=== PATIENT | female | born 1960 | race Two or more races ===

== ENCOUNTER 2024-03-08 23:39 | Emergency (ER) | payer MEDICAID, SELFPAY ==
[2024-03-08 23:41] VITALS: BMI 30.7
[2024-03-09 00:30] VITALS: BP 130/85; PULSE 80; RESP 16; TEMP 36.7; O2SAT 100
--- NOTE | 2024-03-09 00:39 | PD.EDRME ---
Rapid Medical Screening Exam RME Arrival date/time: 03/08/24 23:39 63 yo f present to ED for c/o of RLQ for 1 week I have greeted and performed a focused initial assessment of this patient. A comprehensive ED assessment and evaluation of the patient, analysis of all test results, and completion of the medical decision making process will be conducted by additional ED providers. Chief Complaint: Abdominal Pain Time Seen by Provider: 03/08/24 23:45 Vital signs: Vital Signs Temperature 98.0 F 03/09/24 00:30 Pulse Rate 80 03/09/24 00:30 Respiratory Rate 16 03/09/24 00:30 Blood Pressure 130/85 H 03/09/24 00:30 Pulse Oximetry (%) 100 03/09/24 00:30 Oxygen Delivery Method Room Air 03/09/24 00:30
--- NOTE | 2024-03-09 00:40 | XR_ITS ---
Examination: Transvaginal ultrasound of the pelvis, complete Technique: Transvaginal sonographic images pelvis performed using pringle scale imaging Exam date and time: March 09, 2024 1401 hours INDICATIONS: Right pelvic pain beginning one week ago FINDINGS: Absent uterus Ovaries obscured by bowel gas IMPRESSION: Limited study No free fluid in the pelvis No pelvic mass.
[2024-03-09 01:12] LABS: Collection Type, Urine Voided
[2024-03-09 01:20] LABS: Basophils % (Auto) 1 % (0-2.5); Eosinophils # (Auto) 0.2 Thou/mm3 (0.0-0.5); Eosinophils % (Auto) 3 % (0-10); Hematocrit 40.4 % (36.0-46.0); Hemoglobin 13.7 g/dL (12.0-16.0); Immature Granulocytes % (Auto) 0 % (0-0); Immature Granulocytes Auto 0.01 Thou/mm3 (0.00-0.00); Lymphocytes # (Auto) 2.1 Thou/mm3 (1.0-4.8); Lymphocytes % (Auto) 33 % (10-50); Mean Corpuscular HGB Conc 33.9 g/dl (31.0-37.0); Mean Corpuscular Hemoglobin 29.3 pg (25.0-35.0); Mean Corpuscular Volume 87 fL (80-100); Monocytes # (Auto) 0.5 Thou/mm3 (0.0-0.8); Monocytes % (Auto) 8 % (0-12); Neutrophils # (Auto) 3.4 Thou/mm3 (1.8-7.7); Neutrophils % (Auto) 55 % (37-80); Nucleated Red Blood Cell % 0 /100 WBC (0); Platelet Count 283 Thou/mm3 (140-440); RDW Standard Deviation 38.4 fL (36.4-46.3); Red Blood Count 4.67 Miln/mm3 (4.00-5.20); White Blood Count 6.2 Thou/mm3 (3.6-11.0)
[2024-03-09 01:23] LABS: Bilirubin,Urine Negative (Negative); Blood,Urine Negative (Negative); Clarity,Urine Clear (Clear/Hazy); Color,Urine Yellow (Lt Yel-Yel); Glucose, Urine Negative (Negative); Hyaline Casts,Urine < 1 /hpf (0-1); Ketones,Urine Negative (Negative); Leukocyte Esterase,Urine Negative (Negative); Nitrite,Urine Negative (Negative); Protein,Urine 1+ (Neg - Trace); RBC,Urine 2 /hpf (0-3); Specific Gravity,Urine 1.038 (1.001-1.035); Squamous Epithelial Cell,Urine 2 /hpf (0-5); WBC,Urine 4 /hpf (0-5)
[2024-03-09 01:38] LABS: Alanine Aminotransferase 24 U/L (10-49); Albumin, Serum 4.3 gm/dL (3.4-4.8); Albumin/Globulin Ratio 1.1 (1.2-2.2); Alkaline Phosphatase 191 U/L (46-116); Anion Gap 8 (7-16); Aspartate Amino Transferase 25 U/L (0-34); BUN/Creatinine Ratio 31 Ratio (12-20); Bilirubin,Total 0.2 mg/dL (0.3-1.2); Blood Urea Nitrogen 25 mg/dL (9-23); Calcium 9.6 mg/dL (8.3-10.6); Calcium (Corrected) 9.6 mg/dL (8.5-10.1); Chloride 104 mMol/L (98-107); Creatinine (Component) 0.8 mg/dL (0.6-1.3); Estimated Creatinine Clearance 56.3 mL/min (>60); Globulin 3.8 gm/dL (2.3-3.5); Glucose 96 mg/dL (74-106); Lipase 42 U/L (12-53); Osmolality,Calculated 285 (275-295); Potassium 3.9 mMol/L (3.4-5.1); Sodium 141 mMol/L (136-145); Total Protein 8.1 gm/dL (5.7-8.2); eGFR > 60 See Note
--- NOTE | 2024-03-09 03:39 | PRELIM_ITS ---
Pelvic ultrasound (transvaginal). March 09, 2024 0201 hours Clinical history: Right pelvic pain for 1 week No prior study is available for comparison. Findings and Impression:The uterus is surgically absent. Both ovaries are not visualized due to bowel gas.There is no adnexal mass. There is no free f luid on the submitted images. Report Electronically Signed By: Marcos Hay 03/09/2024 3:39:19 AM [ES T]
--- NOTE | 2024-03-09 03:50 | XR_ITS ---
Examination: CT abdomen with intravenous contrast CT pelvis with intravenous contrast 2-D coronal reconstructions 2-D sagittal reconstructions Date and time of exam:March 09, 2024 0430 hours Comparison April 18, 2023 INDICATIONS: Onset pelvic pain beginning one week ago. CTDI: vol (mGy) 7.85 DLP: (mGycm) 414 Technique: Multiple axial sections of the abdomen and pelvis have been obtained. 64 slice high-resolution scanner used. 3 mm axial sections have been obtained, post intravenous injection 60 cc [id number] 2-D sagittal, coronal reconstructions obtained. Low dose protocols were performed. One or more of the following dose reduction techniques were used; automated exposure control, adjustment of the mA and/or KV according to patient size, use of iterative reconstruction technique. Findings: No focal liver or splenic lesion Gastric sutures No gallstones No pancreatic or adrenal mass No renal or ureteral calculi No hydronephrosis Aorta normal size No pericecal inflammatory change Fluid distended small bowel loops No diverticulitis Urinary bladder intact Small sclerotic lesion L4 vertebral body, recommend plain film metastatic bone survey follow-up IMPRESSION: Small bowel ileus versus enteritis pattern, consider 3 way abdominal series follow-up Sclerotic lesion L4 vertebral body, recommend plain film metastatic bone survey follow-up
--- NOTE | 2024-03-09 05:26 | PRELIM_ITS ---
CT scan of the abdomen and pelvis with intravenous contrast (axial sections with sagittal and coronal reformats) March 09, 2024 at 0415 hoursClinical History: Right lower quadrant for 1 week.Correlat ed with prior Ultrasound of March 09, 2024.Findings:The lung bases are clear.The liver, gallbladder , pancreas, spleen, kidneys and adrenals are unremarkable.No evidence of bowel obstruction. No eviden ce of appendicitis.Fecal loading.A few scattered air-fluid levels in the small bowel without evidence of wall thickening.There is no mesenteric or retroperitoneal adenopathy.The urinary bladder is unrem arkable. There is no free fluid or free air.Sclerotic lesion in the vertebral body of L4. No acute f ractures.Status post gastric bypass surgery.Impression:Possible mild enteritis.Fecal loading.Sclerot ic lesion in the vertebral body of L4, bone island versus metastasis, consider further evaluation. Re port Electronically Signed By: Yunior Kendall 03/09/2024 5:25:35 AM [EST]
--- NOTE | 2024-03-09 07:40 | EDNOTE_ITS ---
<Statement entered by Cheryle Crowe MD - 03/10/24 09:17> As co-signing physician, I was present and available for consult prn. I concur with the plan and care as documented by the midlevel provider. ED Abdominal Pain RME/HPI General Chief Complaint: Abdominal Pain Stated complaint: PELVIC PAIN X 1 WEEK Time seen by provider: 03/08/24 23:45 Arrival date/time: 03/08/24 23:39 63-year-old female with medical history significant for gastric bypass presents emerged department complains of pelvic pain ongoing x 1 week patient reports no fever or vomiting patient does report nausea there are no other associated symptoms or aggravating factors no other modifying factors, patient denies taking medication before coming to ER today Limitations: no limitations RME / HPI RME / HPI narrative: 03/08/24 23:39 63 yo f present to ED for c/o of RLQ for 1 week I have greeted and performed a focused initial assessment of this patient. A comprehensive ED assessment and evaluation of the patient, analysis of all test results, and completion of the medical decision making process will be conducted by additional ED providers. Related Data Previous Rx's ?Medication ?Instructions ?Recorded cyclobenzaprine 5 mg tablet 5 mg PO TID PRN muscle spasm #30 01/03/23 tabs hydrocodone 5 mg-acetaminophen 325 1 tab PO BID PRN pain #10 tabs 01/03/23 mg tablet hydrocodone 5 mg-acetaminophen 325 1 tab PO BID PRN pain #10 tabs 03/09/24 mg tablet metoclopramide HCl 10 mg tablet 10 mg PO Q6H PRN nausea and 03/09/24 (Reglan) vomiting #30 tabs Allergies Allergy/AdvReac Type Severity Reaction Status Date / Time ketorolac [From Toradol] Allergy Anxiety Verified 04/18/23 02:25 Review of Systems Review of Systems Systems Reviewed: All systems reviewed, normal except as documented Constitutional Constitutional: Reports system reviewed and no additional complaints, except as documented, Denies fever(s) and Denies headache(s) Eyes Eyes: Reports system reviewed and no additional complaints, except as documented and Denies blurry vision ENT Ears, Nose, Mouth, and Throat: Reports system reviewed and no additional complaints, except as documented, Denies headache(s), Denies nasal congestion, Denies nasal discharge and Denies neck pain Cardiovascular Cardiovascular: Reports system reviewed and no additional complaints, except as documented, Denies chest pain and Denies dyspnea Respiratory Respiratory: Reports system reviewed and no additional complaints, except as documented, Denies chest congestion, Denies cough and Denies dyspnea Gastrointestinal Gastrointestinal: Reports system reviewed and no additional complaints, except as documented, Reports abdominal pain, Denies melena, Reports nausea and Denies vomiting Musculoskeletal Musculoskeletal: Reports system reviewed and no additional complaints, except as documented, Denies neck pain and Denies numbness Integumentary/Breasts Skin/Breast: Reports system reviewed and no additional complaints, except as documented and Denies rash Neurologic Neurologic: Reports system reviewed and no additional complaints, except as documented, Reports as per HPI, Denies headache(s) and Denies numbness Past Medical History Past Medical History NEUROLOGIC: Negative Neurological Disorders or Seizures CARDIAC: Positive Hypertension; Negative Cardiac Disorders or Congestive Heart Failure RESPIRATORY: Negative Chronic Obstructive Pulmonary Disease (COPD) or Asthma GASTROINTESTINAL: Positive Gastrointestinal Disorders GENITOURINARY: Positive Genitourinary Disorders and Inguinal Hernia; Negative Renal Disease REPRODUCTIVE: Positive Previous Pregnancies MUSCULOSKELETAL: Positive Musculoskeletal Disorders ENDOCRINE: Positive Endocrine Disorders and Diabetes Mellitus Type 2; Negative Diabetes Mellitus Type 1 HEMATOLOGIC: Positive Blood Disorders and Anemia; Negative Sickle Cell Disease PSYCHO/SOCIAL: Positive Anxiety OTHER HISTORY: Positive Blood Transfusions and Chicken Pox; Negative Autoimmune Disease, Blood Transfusion Reaction, Anesthesia Reactions or Cancer Family History FAMILY HISTORY: Positive Family Cardiac Disorders, Family Gastrointestinal Problems and Family Surgery; Negative Family Psychiatric Problems, Family Respiratory Disorders, Family Cancer or Family Anesthesia Reaction Surgical History SURGICAL: Positive Abdominal Surgery, Gastric Bypass Surgery, Lumpectomy, Hysterectomy and Tubal Ligation Social History SMOKING STATUS: Never smoker SECOND HAND EXPOSURE: No SUBSTANCE USE: does not use ED Exam General Limitations: Present no limitations General appearance: Present alert and in no apparent distress Head Head exam: Present atraumatic and normocephalic Eye Eye exam: Present normal appearance, PERRL and EOMI; Absent conjunctival injection ENT ENT exam: Present normal exam, normal oropharynx and mucous membranes moist Neck Neck exam: Present normal inspection, full ROM and trachea midline Chest Chest inspection: Present normal inspection and symmetric chest wall rise Respiratory Respiratory exam: Present normal lung sounds bilaterally; Absent respiratory distress Cardiovascular Cardiovascular exam: Present regular rate, normal rhythm and normal heart sounds Abdominal Exam Abdominal exam: Present soft and normal bowel sounds; Absent distention, tenderness, guarding, rebound, rigidity, Manuel's sign or tenderness at McBurney's Point Abdominal tenderness: Present RLQ and mild Extremities Exam Extremities exam: Present normal inspection and full ROM Back Exam Back exam: Present normal inspection and full ROM Neurological Exam Neurological exam: Present alert, oriented X3 and CN II-XII intact Psychiatric Psychiatric exam: Present normal affect and normal mood Skin Skin exam: Present warm, dry, intact and normal color Course Quality Measures none Orders Category Date Time Status CT Screening NOW Care 03/09/24 03:50 Completed IV [Insert IV] STAT Care 03/09/24 03:[address] abdomen pelvis w con Stat Exams 03/09/24 03:50 Completed US transvaginal Stat Exams 03/09/24 00:40 Completed CBC Stat Lab 03/09/24 01:00 Completed CMP [Comprehensive Metabolic Panel] Stat Lab 03/09/24 01:00 Completed Lipase Stat Lab 03/09/24 01:00 Completed UA [Urinalysis] Stat Lab 03/09/24 01:05 Completed Urine Culture Stat Lab 03/09/24 01:05 Received HYDROcodone*/APAP 5/325 [[place] 5/325] Med 03/09/24 07:40 Discontinued 1 tab PO X1 ONE Metoclopramide [Reglan] Med 03/09/24 07:40 Discontinued 10 mg PO X1 ONE Vital Signs Vital signs: Vital Signs Temperature 98.0 F 03/09/24 00:30 Pulse Rate 80 03/09/24 00:30 Respiratory Rate 16 03/09/24 00:30 Blood Pressure 130/85 H 03/09/24 00:30 Pulse Oximetry (%) 100 03/09/24 00:30 Oxygen Delivery Method Room Air 03/09/24 00:30 O2 saturation 100% room air within normal limits Abdominal Pain MDM MDM Narrative MDM Narrative:: 63-year-old female with medical history significant for gastric bypass presents emerged department complains of pelvic pain ongoing x 1 week patient reports no fever or vomiting patient does report nausea there are no other associated symptoms or aggravating factors no other modifying factors, patient denies taking medication before coming to ER today On exam patient well-appearing patient does not appear ill or toxic in no acute distress Imaging as well as lab work obtained by my colleague he ordered an ultrasound p atient has no uterus both ovaries were not visualized secondary to bowel gas CT scan is read by teleradiology as possible mild enteritis, fecal loading sclerotic lesion of vertebral body of L4 bone island versus metastasis consider further evaluation I spoke with the patient instructed her to have outpatient MRI of her spine for further evaluation As patient hemodynamically stable symptoms are mild patient be discharged home at this time Patient given Reglan and [place] Patient discharged home in no distress to follow-up with primary care doctor in the next 24 to 48 hours and for any worsening symptoms to return to the ER immediately Patient instructed to have outpatient MRI for further evaluation for sclerotic lesion L4 vertebral body Patient data External records reviewed:: [facility] previous records Clinical information provided by:: patient Social determinants that could affect healthcare access:: none Patient has the following chronic illnesses:: See history How is presenting disease/condition affected by chronic disease/condition?: uneffected by Evaluation data The following diagnostics were reviewed and interpreted by me:: lab results and radiology exam(s) Lab and/or radiology exams considered but not ordered:: Labs and radiology obtained Interpretation Summary: Reviewed by me Medications / Prescriptions Medications or Prescriptions considered but not ordered:: Given Medication administrations:: Medication Administration History Discontinued Medications Hydrocodone Bitart/Acetaminophen (Hydrocodone/Apap 5/325 Tablet) 1 tab PO X1 ONE Stop: 03/09/24 07:41 Last Admin: 03/09/24 07:49 Dose: 1 tab Documented By: ZAIRA Metoclopramide HCl (Metoclopramide 5 Mg Tablet) 10 mg PO X1 ONE Stop: 03/09/24 07:41 Last Admin: 03/09/24 07:50 Dose: 10 mg Documented By: ZAIRA Given Consultations Consultation(s) initiated? (list below): No Diagnosis Differential diagnosis abdominal pain: abdominal pain, acute appendicitis, gastroenteritis and pancreatitis Most likely diagnosis given after review of the tests above:: Abdominal pain Admission Indicated Admission indicated?: not indicated Admission Request Was there a request for admission?: No Disposition Plan Disposition Plan: Discharge Discharge Attestation Discharge Attestation: The patient and all family members were given an opportunity to ask questions and understood the discharge instructions. Discharge instructions specifically effects, indications for sooner follow up or return to the emergency department, and the expected course of current diagnosis. Patient condition: Stable Discharge Plan Plan Patient Disposition: HOME (Self Care) Disposition Comment: Stable Prescriptions/Referrals Prescriptions/Med Rec: New hydrocodone-acetaminophen 5-325 mg tablet 1 tab PO BID MDD 10 PRN (Reason: pain) Qty: 10 0RF metoclopramide HCl [Reglan] 10 mg tablet 10 mg PO Q6H PRN (Reason: nausea and vomiting) Qty: 30 0RF No Action hydrocodone-acetaminophen 5-325 mg tablet 1 tab PO BID MDD 10 PRN (Reason: pain) Qty: 10 0RF cyclobenzaprine 5 mg tablet 5 mg PO TID PRN (Reason: muscle spasm) Qty: 30 0RF Referrals: Robert Pierson MD [Primary Care Provider] - 03/12/24 Problem List Clinical Impression: Abdominal pain Patient/Caregiver Discharge Instructions Education Materials: Abdominal Pain Additional Instructions: Please follow up with your primary care doctor in the next 24-48hrs for any worsening symptoms return here immediately Print Language: Kenyan Stand Alone Forms: Mary Award Info., Patient Portal Info Letter PA/WELD ENGINEER Supervising Physician PA/WELD ENGINEER Supervising Physician: Dr. CROWE
[2024-03-09] MEDS: HYDROcodone/APAP 5/325 TABLET 1 TAB PO (07:49)
[2024-03-09] MEDS: METOCLOPRAMIDE 5 MG TABLET 10 MG PO (07:50)
== END 2024-03-09 07:54 | disposition home or self-care (01) ==
PROVIDERS: Physician Assistant; Emergency Provider Emergency Medicine; PCP Family Medicine
DX: R10.2 Pelvic and perineal pain (principal)
CPT/HCPCS: 36415; 74177; 76830; 80053; 81001; 83690; 85025; 87077; 87086; 87186; 99285; A4649; Q9967; A9270

== ENCOUNTER 2024-06-08 02:41 | Emergency (ER) | payer MEDICAID, SELFPAY ==
--- NOTE | 2024-06-08 02:50 | EKG_ITS ---
[facility] Test Date: 2024-06-08 Pat Name: RAYMON BUSCH Department: Room: - Gender: Female Research And Development Researcher: : 1960 Requested By: Jose Chapin Order Number: [id number] Reading MD: Jose Chapin Measurements Intervals [place] Rate: 76 P: 20 MA: 212 QRS: -15 QRSD: 100 T: -12 QT: 380 QTc: 428 Interpretive Statements SINUS RHYTHM WITH FIRST DEGREE AV BLOCK Compared to ECG 09/29/2022 13:18:22 First degree AV block now present /[email or web address]/[id number]
--- NOTE | 2024-06-08 02:50 | PD.EDAMS ---
Altered Mental Status RME/HPI General Stated Complaint: LOW BLOOD SUGAR Time Seen by Provider: 06/08/24 02:49 Arrival date/time: 06/08/24 02:41 RME / HPI RME / HPI narrative: This section includes all my notes and documentations, including HPI, PE, and ED course. Jose Whitfield MD HPI: 63yo female with a history of DM BIBA from home presents to the ED for a chief complaint of AMS. Per EMS, family found the patient to be lethargic. EMS checked her blood sugar and was noted to be 56, so they administered D10. Here in the ED, patient is awake and answering questions. She reports feeling nauseated, stating she didn't eat much dinner tonight. She denies any vomiting, chest pain, shortness of breath, abdominal pain or any other associated symptoms. No other complaints reported. ROS: All negative except as documented in HPI. Physical Exam: General: Alert and oriented. Appears lethargic. No acute distress when remaining still. Eyes: Conjunctivae and lids clear. ENT: No nasal congestion. Neck: Supple. Heart: RRR. Lungs: No respiratory distress. Good air movement. No rhonchi, wheezing, rales. Abdomen: Soft and nontender. Normal bowel sounds. No distension. No rebound or guarding. Back: No CVA tenderness. Skin: Warm and dry. Neuro: Alert and oriented X 3. I reviewed all diagnostic test results. My interpretation of the EKG is My interpretation of the chest x-ray is My review of the CT report is Blood tests and urine tests At this point, diagnoses include Treatment here included Significant improvement Not yet done: I discussed the case with our hospitalist. About the presentation and exam and diagnostics and treatments here. And need of further care in the hospital. Will accept the patient. Not yet done: Based on my best medical judgment, made decision no further evaluation or treatment indicated at this time. Patient understands and agrees to the discharge instructions customized and printed, see below. Jose Whitfield MD Related Data Previous Rx's ?Medication ?Instructions ?Recorded cyclobenzaprine 5 mg tablet 5 mg PO TID PRN muscle spasm #30 01/03/23 tabs hydrocodone 5 mg-acetaminophen 325 1 tab PO BID PRN pain #10 tabs 01/03/23 mg tablet hydrocodone 5 mg-acetaminophen 325 1 tab PO BID PRN pain #10 tabs 03/09/24 mg tablet metoclopramide HCl 10 mg tablet 10 mg PO Q6H PRN nausea and 03/09/24 (Reglan) vomiting #30 tabs Allergies Allergy/AdvReac Type Severity Reaction Status Date / Time ketorolac (From Toradol) Allergy Anxiety Verified 04/18/23 02:25 Review of Systems Review of Systems Systems Reviewed: All systems reviewed, normal except as documented Past Medical History Past Medical History NEUROLOGIC: Negative Neurological Disorders or Seizures CARDIAC: Positive Hypertension; Negative Cardiac Disorders or Congestive Heart Failure RESPIRATORY: Negative Chronic Obstructive Pulmonary Disease (COPD) or Asthma GASTROINTESTINAL: Positive Gastrointestinal Disorders GENITOURINARY: Positive Genitourinary Disorders and Inguinal Hernia; Negative Renal Disease REPRODUCTIVE: Positive Previous Pregnancies MUSCULOSKELETAL: Positive Musculoskeletal Disorders ENDOCRINE: Positive Endocrine Disorders and Diabetes Mellitus Type 2; Negative Diabetes Mellitus Type 1 HEMATOLOGIC: Positive Blood Disorders and Anemia; Negative Sickle Cell Disease PSYCHO/SOCIAL: Positive Anxiety OTHER HISTORY: Positive Blood Transfusions and Chicken Pox; Negative Autoimmune Disease, Blood Transfusion Reaction, Anesthesia Reactions or Cancer Family History FAMILY HISTORY: Positive Family Cardiac Disorders, Family Gastrointestinal Problems and Family Surgery; Negative Family Psychiatric Problems, Family Respiratory Disorders, Family Cancer or Family Anesthesia Reaction Surgical History SURGICAL: Positive Abdominal Surgery, Gastric Bypass Surgery, Lumpectomy, Hysterectomy and Tubal Ligation Social History SMOKING STATUS: Never smoker SECOND HAND EXPOSURE: No SUBSTANCE USE: does not use ED Exam Narrative Physical exam: As noted in HPI. Course Quality Measures none Orders Category Date Time Status Bedside COVID-19 Antigen Test NOW Care 06/08/24 02:49 Active Bedside Influenza A&B Antigen Test NOW Care 06/08/24 02:49 Active Saline [Insert IV] NOW Care 06/08/24 02:50 Active Straight [In and Out Catheter] X1 Care 06/08/24 02:50 Active Altered Mental Status MDM Narrative MDM Narrative:: Scribe Attestation: 06/08/24 - Simin Rodríguez am scribing for and in the presence of Dr. Whitfield. Patient data External records reviewed:: [facility] previous records (Per chart review, patient was seen here on 03/09/24 for abdominal pain.) Clinical information provided by:: patient and EMS Social determinants that could affect healthcare access:: none Patient has the following chronic illnesses:: DM How is presenting disease/condition affected by chronic disease/condition?: exacerbated by Evaluation data The following diagnostics were reviewed and interpreted by me:: lab results and EKG tracing(s) Lab and/or radiology exams considered but not ordered:: none Medications / Prescriptions Medications or Prescriptions considered but not ordered:: none Discharge Plan Prescriptions/Referrals Prescriptions/Med Rec: No Action hydrocodone-acetaminophen 5-325 mg tablet 1 tab PO BID MDD 10 PRN (Reason: pain) Qty: 10 0RF cyclobenzaprine 5 mg tablet 5 mg PO TID PRN (Reason: muscle spasm) Qty: 30 0RF hydrocodone-acetaminophen 5-325 mg tablet 1 tab PO BID MDD 10 PRN (Reason: pain) Qty: 10 0RF metoclopramide HCl [Reglan] 10 mg tablet 10 mg PO Q6H PRN (Reason: nausea and vomiting) Qty: 30 0RF Patient/Caregiver Discharge Instructions Print Language: Kazakh
--- NOTE | 2024-06-08 02:51 | XR_ITS ---
Examination: AP chest single view Technique: AP portable upright chest single view Exam date and time: June 08, 2024 0257 hrs. Comparison: 2022 Indications: Shortness of breath today Findings: Mild prominence of ventricle Mild elevation right hemidiaphragm. No pneumonia or pulmonary edema The osseous structures are intact Impression: No pneumonia or pulmonary edema
[2024-06-08 02:52] VITALS: PULSE 83; RESP 14; O2SAT 98; BMI 29.2
--- NOTE | 2024-06-08 02:54 | PD.EDWEAK ---
ED Weakness RME/HPI General Chief complaint: Weakness Stated complaint: LOW BLOOD SUGAR Time Seen by Provider: 06/08/24 02:49 Arrival date/time: 06/08/24 02:41 RME / HPI RME / HPI Narrative: This section includes all my notes and documentations, including HPI, PE, and ED course. Jose Whitfield MD HPI: 63yo female with a history of DM BIBA from home presents to the ED for a chief complaint of AMS. Per EMS, family found the patient to be lethargic. EMS checked her blood sugar and was noted to be 56, so they administered D10. Here in the ED, patient is awake and answering questions. She reports feeling nauseated, stating she didn't eat much dinner tonight. She denies any vomiting, chest pain, shortness of breath, abdominal pain or any other associated symptoms. No other complaints reported. ROS: All negative except as documented in HPI. Physical Exam: General: Alert and oriented. Appears lethargic. No acute distress when remaining still. Eyes: Conjunctivae and lids clear. ENT: No nasal congestion. Neck: Supple. Heart: RRR. Lungs: No respiratory distress. Good air movement. No rhonchi, wheezing, rales. Abdomen: Soft and nontender. Normal bowel sounds. No distension. No rebound or guarding. Back: No CVA tenderness. Skin: Warm and dry. Neuro: Alert and oriented X 3. I reviewed all diagnostic test results. My interpretation of the EKG is My interpretation of the chest x-ray is My review of the CT report is Blood tests and urine tests At this point, diagnoses include Treatment here included Significant improvement Not yet done: I discussed the case with our hospitalist. About the presentation and exam and diagnostics and treatments here. And need of further care in the hospital. Will accept the patient. Not yet done: Based on my best medical judgment, made decision no further evaluation or treatment indicated at this time. Patient understands and agrees to the discharge instructions customized and printed, see below. Discharge Instructions from Dr. Whitfield printed for you: 1. After evaluation, you don't have diabetes. 2. But since you had diabetes, your sugar levels are going to drop and rise more dramatically. 3. So it is important to eat regular nutritious meals. 4. See a private doctor on 06/11/2024 for recheck and further care. Ask to review all test results and official radiology reports, to make sure you receive all necessary follow-ups and monitoring. 5. Seek immediate medical care with worsening or with any concerns. Jose Whitfield MD Related Data Previous Rx's ?Medication ?Instructions ?Recorded cyclobenzaprine 5 mg tablet 5 mg PO TID PRN muscle spasm #30 01/03/23 tabs hydrocodone 5 mg-acetaminophen 325 1 tab PO BID PRN pain #10 tabs 01/03/23 mg tablet hydrocodone 5 mg-acetaminophen 325 1 tab PO BID PRN pain #10 tabs 03/09/24 mg tablet metoclopramide HCl 10 mg tablet 10 mg PO Q6H PRN nausea and 03/09/24 (Reglan) vomiting #30 tabs Allergies Allergy/AdvReac Type Severity Reaction Status Date / Time ketorolac (From Toradol) Allergy Anxiety Verified 04/18/23 02:25 Review of Systems Review of Systems Systems Reviewed: All systems reviewed, normal except as documented ED Exam Narrative Physical exam: As noted in HPI. Course Course Course Narrative: CXR is ordered for determining the etiology of weakness. Quality Measures none Orders Category Date Time Status Bedside COVID-19 Antigen Test NOW Care 06/08/24 02:49 Active Bedside Influenza A&B Antigen Test NOW Care 06/08/24 02:49 Completed EKG (ED ONLY) *Do not use* NOW Care 06/08/24 02:50 Completed Saline [Insert IV] NOW Care 06/08/24 02:50 Active Straight [In and Out Catheter] X1 Care 06/08/24 02:50 Completed EKG (ED Only) Stat Exams 06/08/24 02:50 Draft XR chest 1V portable Stat Exams 06/08/24 02:51 Taken Alcohol, Blood Medical Stat Lab 06/08/24 03:07 Completed Beta Hydroxybutyrate Stat Lab 06/08/24 03:07 Completed CBC Stat Lab 06/08/24 03:07 Completed CMP [Comprehensive Metabolic Panel] Stat Lab 06/08/24 03:07 Completed CRP [C-Reactive Protein] Stat Lab 06/08/24 03:07 Completed Drug Screen,Urine Stat Lab 06/08/24 04:15 Received ESR [Sed Rate (ESR)] Stat Lab 06/08/24 03:07 Completed Free T4 (Free Thyroxine) Stat Lab 06/08/24 03:07 Completed Hemoglobin A1C [Glycohemoglobin w (eAG)] Stat Lab 06/08/24 03:07 Completed Magnesium Stat Lab 06/08/24 03:07 Completed Procalcitonin Stat Lab 06/08/24 03:07 Completed TSH [Thyroid Stimulating Hormone] Stat Lab 06/08/24 03:07 Completed Troponin I Stat Lab 06/08/24 03:07 Completed UA, C/S IF [Urinalysis, C/S if Indicated] Stat Lab 06/08/24 04:15 Completed VBG [Venous Blood Gas] Stat Lab 06/08/24 03:07 Completed KCL 10% Liq UDC 15 ML Med 06/08/24 04:13 Discontinued 40 meq PO X1 ONE Ondansetron Inj [Zofran Inj] Med 06/08/24 02:50 Discontinued 4 mg IV X1 ONE Sodium Chloride 0.9% 1000 ml [Ns] 1,000 ml Med 06/08/24 02:50 Discontinued IV 999 mls/hr Vital Signs Vital signs: Vital Signs Temperature 97.8 F 06/08/24 02:55 Pulse Rate 75 06/08/24 02:55 Respiratory Rate 19 06/08/24 02:55 Blood Pressure 133/81 H 06/08/24 02:55 Pulse Oximetry (%) 97 06/08/24 02:55 Oxygen Delivery Method Room Air 06/08/24 02:55 Weakness MDM Narrative MDM Narrative:: Scribe Attestation: 06/08/24 - Simin Rodríguez am scribing for and in the presence of Dr. Whitfield. Patient data External records reviewed:: [facility] previous records (Per chart review, patient was seen here on 03/09/24 for abdominal pain.) Clinical information provided by:: patient Social determinants that could affect healthcare access:: none Patient has the following chronic illnesses:: DM How is presenting disease/condition affected by chronic disease/condition?: exacerbated by Evaluation data The following diagnostics were reviewed and interpreted by me:: lab results, radiology exam(s) and EKG tracing(s) (My interpretation of the EKG is: Sinus rhythm (76 bpm) with first-degree AV block and nonspecific ST-T changes. Jose Whitfield MD) Lab and/or radiology exams considered but not ordered:: none Medications / Prescriptions Medications or Prescriptions considered but not ordered:: none Medication administrations:: Medication Administration History Discontinued Medications Sodium Chloride (Ns) 1,000 mls @ 999 mls/hr IV .Q1H1M ONE Stop: 06/08/24 03:50 Last Admin: 06/08/24 03:24 Dose: 999 mls/hr Documented By: LB Ondansetron HCl (Ondansetron Inj 2 Mg/Ml Inj 2 Ml) 4 mg IV X1 ONE; Protocol Stop: 06/08/24 02:51 Last Admin: 06/08/24 03:24 Dose: 4 mg Documented By: LB Potassium Chloride (Potassium Chloride 10% 20 Meq/15 Ml Udc) 40 meq PO X1 ONE Stop: 06/08/24 04:14 NS, Zofran Discharge Plan Plan Patient Disposition: HOME (Self Care) Prescriptions/Referrals Prescriptions/Med Rec: No Action hydrocodone-acetaminophen 5-325 mg tablet 1 tab PO BID MDD 10 PRN (Reason: pain) Qty: 10 0RF cyclobenzaprine 5 mg tablet 5 mg PO TID PRN (Reason: muscle spasm) Qty: 30 0RF hydrocodone-acetaminophen 5-325 mg tablet 1 tab PO BID MDD 10 PRN (Reason: pain) Qty: 10 0RF metoclopramide HCl [Reglan] 10 mg tablet 10 mg PO Q6H PRN (Reason: nausea and vomiting) Qty: 30 0RF Referrals: Robert Pierson MD [Primary Care Provider] - In 1 week Problem List Clinical Impression: Hypoglycemia Patient/Caregiver Discharge Instructions Discharge Activity: activity as tolerated Education Materials: ED Hypoglycemia, Nondiabetic Additional Instructions: Discharge Instructions from Dr. Whitfield printed for you: 1. After evaluation, you don't have diabetes. 2. But since you had diabetes, your sugar levels are going to drop and rise more dramatically. 3. So it is important to eat regular nutritious meals. 4. See a private doctor on 06/11/2024 for recheck and further care. Ask to review all test results and official radiology reports, to make sure you receive all necessary follow-ups and monitoring. 5. Seek immediate medical care with worsening or with any concerns. Print Language: Tajik Stand Alone Forms: Mary Award Info., Patient Portal Info Letter
[2024-06-08 02:55] VITALS: BP 133/81; PULSE 75; RESP 19; TEMP 36.6; O2SAT 97
[2024-06-08 03:17] LABS: Base Excess, Venous 1 (-3-3); O2 Saturation, Venous 94 % (96-97); PCO2, Venous 38 mmHg (36-56); PO2, Venous 63 mmHg (15-58); pH, Venous 7.43 (7.33-7.66)
[2024-06-08 03:19] LABS: Basophils % (Auto) 0 % (0-2.5); Eosinophils # (Auto) 0.1 Thou/mm3 (0.0-0.5); Eosinophils % (Auto) 2 % (0-10); Hematocrit 36.5 % (36.0-46.0); Hemoglobin 12.8 g/dL (12.0-16.0); Immature Granulocytes % (Auto) 0 % (0-0); Immature Granulocytes Auto 0.01 Thou/mm3 (0.00-0.00); Lymphocytes # (Auto) 1.3 Thou/mm3 (1.0-4.8); Lymphocytes % (Auto) 24 % (10-50); Mean Corpuscular HGB Conc 35.1 g/dl (31.0-37.0); Mean Corpuscular Hemoglobin 29.4 pg (25.0-35.0); Mean Corpuscular Volume 84 fL (80-100); Monocytes # (Auto) 0.5 Thou/mm3 (0.0-0.8); Monocytes % (Auto) 9 % (0-12); Neutrophils # (Auto) 3.4 Thou/mm3 (1.8-7.7); Neutrophils % (Auto) 65 % (37-80); Nucleated Red Blood Cell % 0 /100 WBC (0); Platelet Count 252 Thou/mm3 (140-440); RDW Standard Deviation 36.3 fL (36.4-46.3); Red Blood Count 4.35 Miln/mm3 (4.00-5.20); White Blood Count 5.3 Thou/mm3 (3.6-11.0)
--- NOTE | 2024-06-08 03:19 | PC.NURSE ---
Initial contact with pt. Received report from Gabbi HERRING.
[2024-06-08 03:20] LABS: Beta Hydroxybutyrate 0.1 mmol/L (<0.6)
[2024-06-08] MEDS: ONDANSETRON INJ 2 MG/ML INJ 2 ML 4 MG IV (03:24)
[2024-06-08] MEDS: SODIUM CHLORIDE 0.9% 1000 ML 1,000 ML 999 ML IV (03:24)
[2024-06-08 03:37] VITALS: BP 125/87; PULSE 70; RESP 18; O2SAT 98
[2024-06-08 03:42] LABS: Sed Rate (ESR) 32 mm/hr (0-30)
[2024-06-08 03:54] LABS: Glucose Estimated Average 120 mg/dL (80-131); Hemoglobin A1C 5.8 % Hgb (4.8-6.0)
[2024-06-08 04:05] LABS: Alanine Aminotransferase 8 U/L (10-49); Albumin, Serum 3.9 gm/dL (3.4-4.8); Albumin/Globulin Ratio 1.2 (1.2-2.2); Alcohol, Blood Medical < 3.0 mg/dL (0-10.0); Alkaline Phosphatase 153 U/L (46-116); Anion Gap 7 (7-16); Aspartate Amino Transferase 14 U/L (0-34); BUN/Creatinine Ratio 29 Ratio (12-20); Bilirubin,Total 0.3 mg/dL (0.3-1.2); Blood Urea Nitrogen 23 mg/dL (9-23); C-Reactive Protein < 0.5 mg/dL (0.0-0.9); Calcium 8.8 mg/dL (8.3-10.6); Calcium (Corrected) 8.9 mg/dL (8.5-10.1); Carbon Dioxide 26.1 mMol/L (20.0-31.0); Chloride 107 mMol/L (98-107); Creatinine (Component) 0.8 mg/dL (0.6-1.3); Estimated Creatinine Clearance 54.9 mL/min (>60); Free T4 (Free Thyroxine) 1.08 ng/dL (0.89-1.76); Globulin 3.3 gm/dL (2.3-3.5); Glucose 162 mg/dL (74-106); Osmolality,Calculated 287 (275-295); Potassium 2.9 mMol/L (3.4-5.1); Procalcitonin < 0.04 ng/ml (0.0-0.49); Sodium 140 mMol/L (136-145); Thyroid Stimulating Hormone 1.06 uIU/mL (0.55-4.78); Total Protein 7.2 gm/dL (5.7-8.2); Troponin I < 0.002 ng/mL (0.0-0.045); eGFR > 60 See Note
[2024-06-08 04:20] LABS: Collection Type, Urine Clean Catch
[2024-06-08 04:23] LABS: Bilirubin,Urine Negative (Negative); Blood,Urine Negative (Negative); Clarity,Urine Clear (Clear/Hazy); Color,Urine Lt-Yellow (Lt Yel-Yel); Culture Indicated,Urine Not Indicated; Glucose, Urine 4+ (Negative); Ketones,Urine Negative (Negative); Leukocyte Esterase,Urine Negative (Negative); Nitrite,Urine Negative (Negative); Protein,Urine Negative (Neg - Trace); RBC,Urine 1 /hpf (0-3); Specific Gravity,Urine 1.024 (1.001-1.035); Squamous Epithelial Cell,Urine 1 /hpf (0-5); Urobilinogen,Urine Negative mg/dL (0.0-1.0); WBC,Urine 3 /hpf (0-5)
[2024-06-08] MEDS: POTASSIUM CHLORIDE 10% 20 MEQ/15 ML UDC 40 MEQ PO (04:33)
[2024-06-08 04:34] VITALS: BP 142/84; PULSE 78; RESP 18; TEMP 36.7; O2SAT 99
[2024-06-08 04:41] LABS: Amphetamine/Methamp Scrn,U Negative (Negative); Barbiturate Screen,Urine Negative (Negative); Benzodiazepines Screen,Urine Negative (Negative); Benzoylecgonine Screen, Ur Negative (Negative); Fentanyl Screen,Urine Negative (Negative); Opiate Screen,Urine Negative (Negative); THC Screen,Urine Negative (Negative)
== END 2024-06-08 04:35 | disposition home or self-care (01) ==
PROVIDERS: Emergency Provider Emergency Medicine; PCP Family Medicine
DX: E11.649 Type 2 diabetes mellitus with hypoglycemia without coma (principal); I44.0 Atrioventricular block, first degree
CPT/HCPCS: 51701; 36415; 71045; 80053; 80307; 80320; 81001; 82010; 82803; 83036; 83735; 84145; 84439; 84443; 84484; 85025; 85652; 86140; 87400; 87811; 93005; 99284; J2405; J7030; A9270; G0480